=== PATIENT | female | born 1990 | race Caucasian/White ===

== ENCOUNTER → 2020-09-12 12:46 | Outpatient (BNVA) | payer OTHER, SELFPAY | PROVIDERS: Visit Provider Orthopaedic Surgery | DX: M75.31 Calcific tendinitis of right shoulder (principal) | CPT/HCPCS: 99212 ==

== ENCOUNTER 2021-06-01 15:17 | Outpatient (REF) | payer OTHER, SELFPAY ==
--- NOTE | ~2021-06-01 | XR_ITS ---
EXAMINATION: KNEE X-RAY CLINICAL INFORMATION: Pain COMPARISON: None TECHNIQUE: Standing view of both knees and sunrise and lateral view of the right knee FINDINGS: Right knee: Bone alignment is normal. No fracture or dislocation is seen. The joint spaces are normal. There is no joint effusion. Standing AP view of the left knee is unremarkable. XR/XR knee standing BI IMPRESSION: Unremarkable exam.
--- NOTE | ~2021-06-01 | XR_ITS ---
EXAMINATION: KNEE X-RAY CLINICAL INFORMATION: Pain COMPARISON: None TECHNIQUE: Standing view of both knees and sunrise and lateral view of the right knee FINDINGS: Right knee: Bone alignment is normal. No fracture or dislocation is seen. The joint spaces are normal. There is no joint effusion. Standing AP view of the left knee is unremarkable. XR/XR knee RT 2V IMPRESSION: Unremarkable exam.
== END 2021-06-01 15:18 | disposition home or self-care (01) ==
LOC: HO.HOSX 15:17
PROVIDERS: Visit Provider Physician Assistant
DX: S80.01XA Contusion of right knee, initial encounter (principal)
CPT/HCPCS: 73560; 73565; 99202